=== PATIENT | male | born 1935 | race Two or more races ===

== ENCOUNTER 2020-01-23 20:34 | Emergency (ER) | payer OTHER ==
--- NOTE | 2020-01-23 20:49 | PDOC ---
History of Present Illness - General Chief Complaint: Blood Pressure Problem Stated Complaint: BLOOD PRESSURE PROBLEM - History of Present Illness Initial Comments: The pt is a 84M w/ a history of glaucoma, hypothyroidism, hypertension, CAD with stents placed 10 years ago who presents for evaluation of high blood pressure. He took his BP this AM and was SBP 170s Pt denies ORTEGA, vision changes, chest pain, trouble breathing, N/V, abdominal pain, rash, numbness/tingling Virtual appointment w/ Dr. Solorio yesterday; Lisinopril increased from 30mg to 40mg Spoke with daughter, who lives with patient (Malena), who states pt appeared anxious, did not witness shaking Meds: Lisinopril, Synthroid, ASA Daughter, Malena - [phone] 01/23/20 20:49 Past History - Medical History Allergies/Adverse Reactions: Allergies Allergy/AdvReac Type Severity Reaction Status Date / Time No Known Allergies Allergy Verified 01/23/20 21:09 Home Medications: Ambulatory Orders Lisinopril [Prinivil] 20 mg PO DAILY 11/21/19 Amlodipine Besylate [Norvasc -] 5 mg PO DAILY #30 tablet 11/23/19 Aspirin Coated [Ecotrin -] 81 mg PO DAILY tablet.ec 11/23/19 Levothyroxine [Synthroid -] 50 mcg PO DAILY@0700 30 Days tablet 11/23/19 Cardiac Disorders: Yes (STENT) HTN: Yes Thyroid Disease: Yes (HYPOTHYROIDISM) - Surgical History Cardiac Surgery: Yes (STENT) - Psycho-Social/Smoking History Smoking History: Never smoked Review of Systems - Review of Systems Able to Perform ROS?: Yes Comments:: GENERAL/CONSTITUTIONAL: No fever or chills. No weakness HEAD, EYES, EARS, NOSE AND THROAT: No change in vision. No change in hearing. No sore throat CARDIOVASCULAR: No chest pain or shortness of breath RESPIRATORY: Denies cough, hemoptysis GASTROINTESTINAL: No nausea, vomiting, diarrhea or constipation GENITOURINARY: No dysuria, frequency, or change in urination MUSCULOSKELETAL: No joint or muscle swelling or pain. No neck or back pain SKIN: No rash NEUROLOGIC: No headache, vertigo, loss of consciousness, or change in strength/sensation ENDOCRINE: No increased thirst. No abnormal weight change HEMATOLOGIC/LYMPHATIC: No anemia, easy bleeding, or history of blood clots ALLERGIC/IMMUNOLOGIC: No hives or skin allergy 01/23/20 20:49 Is the patient limited Azeri proficient: No *Physical Exam - Vital Signs 01/23/20 21:15 Initial Vital Signs Temp Pulse Resp BP Pulse Ox 98.3 F 55 L 20 138/78 100 01/23/20 21:06 01/23/20 21:06 01/23/20 21:06 01/23/20 21:06 01/23/20 21:06 - Physical Exam GENERAL: Awake, alert, and oriented to person/place/time, in no acute distress HEAD: No signs of trauma, normocephalic, atraumatic EYES: PERRLA, EOMI, sclera anicteric, conjunctiva clear ENT: Hearing grossly normal, nares patent, oropharynx clear without exudates. Moist mucosa LUNGS: No distress, speaks in full sentences, clear to auscultation bilaterally HEART: Regular rate and rhythm, normal S1 and S2, no murmurs appreciated, peripheral pulses normal and equal bilaterally ABDOMEN: Soft, nontender, normoactive bowel sounds. No guarding, no rebound EXTREMITIES: Normal inspection, Normal range of motion, no edema. No clubbing or cyanosis NEUROLOGICAL: Cranial nerves II through XII grossly intact. Normal speech, no focal sensorimotor deficits SKIN: Warm, Dry 01/23/20 20:49 ED Treatment Course - LABORATORY CBC & Chemistry Diagram: 01/23/20 21:00 01/23/20 20:46 Medical Decision Making - Medical Decision Making The pt is a 84M w/ a history of glaucoma, hypothyroidism, hypertension, CAD with stents placed 10 years ago who presents for evaluation of high blood pressure. ED Course Recent labs w/ neg Trop ECG Pt w/o chest pain at this time Pt w/o shaking or tremors at this time BP at rest 130s/70s 01/23/20 21:15 Anemia noted, no indication for transfusion at this time Leukopenia noted, similar to previous 01/23/20 21:17 ECG w/ RBBB; sinus bradycardia; HR 54; QTc 430; no axis deviation; no acute ishcemic changes 01/23/20 21:26 Discussion had with pt about how to properly take a blood pressure Pt states he is concerned because he does not know why he had higher blood pressure earlier today He states he was anxious he would and wanted to be evaluated 01/23/20 21:36 Na improved from previous Remainder of lytes unremarkable No LOC LFTs unremarkable Trop I neg Plan for D/C w/ PCP f/u Discharge instructions and return precautions given Patient in agreement and verbalized understanding Dispo: Home 01/23/20 21:50 Discharge - Discharge Information Problems reviewed: Yes Clinical Impression/Diagnosis: Hypertension Qualifiers: Hypertension type: unspecified Qualified Code(s): I10 - Essential (primary) hypertension Condition: Stable - Admission No - Follow up/Referral Referrals: Kendra Kaminski MD [Primary Care Provider] - - Patient Discharge Instructions Patient Printed Discharge Instructions: DI for High Blood Pressure, How to Monitor Your Blood Pressure at Home Additional Instructions: You were seen in the Emergency Department for evaluation of high blood pressure. You blood pressure here was normal. Your labs were unremarkable. You ECG had not changes. Review the handout provided at discharge. Follow up with your primary care provider. Return to the Emergency Department if you develop fevers, chest pain, vision changes, changes in sensation/strength, trouble breathing, worsening symptoms, or any new/concerning symptoms. - Post Discharge Activity
[2020-01-23 21:09] VITALS: TEMP 98.3; BMI 22.4
[2020-01-23 21:11] LABS: BASO % 0.5 % (0-2.0); EOS % 2.9 % (0-4.5); HEMATOCRIT 33.9 % (35.4-49); HEMOGLOBIN 11.6 GM/dL (11.7-16.9); MCH 32.4 pg (25.7-33.7); MCHC 34.3 g/dl (32.0-35.9); MEAN CELL VOLUME 94.5 fl (80-96); MEAN PLT VOLUME 6.5 fl (7.5-11.1); MONO % 10.7 % (3.8-10.2); NEUT % 61.9 % (42.8-82.8); PLATELET COUNT 217 K/MM3 (134-434); RBC 3.59 M/mm3 (4.00-5.60); RDW 14.2 % (11.9-15.9); WHITE BLOOD COUNT 2.9 K/mm3 (4.0-10.0)
[2020-01-23 21:45] LABS: ALK PHOS 55 U/L (45-117); ANION GAP 7 MMOL/L (8-16); BILIRUBIN,TOTAL 0.6 mg/dL (0.2-1); CALCIUM 8.9 mg/dL (8.5-10.1); CHLORIDE 95 mmol/L (98-107); CO2 29 mmol/L (21-32); CREATININE 0.7 mg/dL (0.55-1.3); GLUCOSE,RANDOM 104 mg/dL (74-106); POTASSIUM 3.9 mmol/L (3.5-5.1); SGOT/AST 16 U/L (15-37); SGPT/ALT 21 U/L (13-61); SODIUM 131 mmol/L (136-145); TOT PROT 7.2 g/dl (6.4-8.2)
--- NOTE | 2020-01-23 21:52 | PDOC ---
Documentation entered by Didi Edwards SCRIBE, acting as scribe for Ara Sam MD. Ara Sam MD: This documentation has been prepared by the Jerry cabello Brenda, SCRIBE, under my direction and personally reviewed by me in its entirety. I confirm that the documentation accurately reflects all work, treatment, procedures, and medical decision making performed by me. Attending Attestation - Resident Resident Name: Tad Perea - ED Attending Attestation I have performed the following: I have examined & evaluated the patient, The case was reviewed & discussed with the resident, I agree w/resident's findings & plan, Exceptions are as noted - HPI HPI: 01/23/20 21:52 this 84 yo male came to the ED because he took his blood pressure and it was elevated. He just spoke with his PCP yesterday who increasd his lisinopril to 40 mg 01/23/20 21:59 - Physicial Exam PE: 01/23/20 21:59 slender 84 yo male is worried about his blood pressure head ncat neck supple lungs cta b/l cvs [id number] abd nontender skin warm and dry neuro axox3 - Medical Decision Making 01/23/20 21:51 labs reviewed,UA negative no ekg changes 01/23/20 22:03 negative troponin/ pt DENIES chest pain,shortness of breath,vomiting,visual changes Dr Perea spoke with his daughter and she will pick the patient up 01/23/20 22:08 Discharge - Discharge Information Problems reviewed: Yes Clinical Impression/Diagnosis: Hypertension Qualifiers: Hypertension type: unspecified Qualified Code(s): I10 - Essential (primary) hypertension Condition: Stable - Follow up/Referral Referrals: Kendra Kaminski MD [Primary Care Provider] - - Patient Discharge Instructions Patient Printed Discharge Instructions: DI for High Blood Pressure, How to Monitor Your Blood Pressure at Home Additional Instructions: You were seen in the Emergency Department for evaluation of high blood pressure. You blood pressure here was normal. Your labs were unremarkable. You ECG had not changes. Review the handout provided at discharge. Follow up with your primary care provider. Return to the Emergency Department if you develop fevers, chest pain, vision changes, changes in sensation/strength, trouble breathing, worsening symptoms, or any new/concerning symptoms. - Post Discharge Activity
[2020-01-23 22:03] LABS: URINE APPEARANCE CLEAR; URINE BILIRUBIN NEGATIVE (NEGATIVE); URINE COLOR YELLOW; URINE GLUCOSE (UA) NEGATIVE (NEGATIVE); URINE KETONE NEGATIVE (NEGATIVE); URINE LEUK ESTERASE NEGATIVE (NEGATIVE); URINE NITRITE NEGATIVE (NEGATIVE); URINE PROTEIN NEGATIVE (NEGATIVE); URINE UROBILINOGEN 0.2 mg/dL (0.2-1.0)
[2020-01-24 07:12] VITALS: BP 132/86; PULSE 73
--- NOTE | 2020-01-24 12:41 | EKG ---
Test Reason : Blood Pressure : / mmHG Vent. Rate : 054 BPM Atrial Rate : 054 BPM P-R Int : 228 ms QRS Dur : 144 ms QT Int : 454 ms P-R-T Axes : 072 059 055 degrees QTc Int : 430 ms SINUS BRADYCARDIA WITH 1ST DEGREE A-V BLOCK RIGHT BUNDLE BRANCH BLOCK ABNORMAL ECG WHEN COMPARED WITH ECG OF 20-JAN-2020 19:00, NO SIGNIFICANT CHANGE WAS FOUND Confirmed by MD NANI, BETO ([id number]) on 01/24/2020 12:41:34 PM Referred By: Confirmed By:BETO CARDOZA MD
== END 2020-01-23 22:28 | disposition home or self-care (01) ==
LOC: JER 20:34
DX: I10 Essential (primary) hypertension (principal)
CPT/HCPCS: 36415; 80053; 81003; 84484; 85025; 93005; 93010; 99284-25

== ENCOUNTER 2024-04-28 18:46 | Inpatient (IN) | payer OTHER ==
[2024-04-28] MEDS: SODIUM CHLORIDE 1,000 ML IV STA (21:16)
[2024-04-28 21:21] LABS: BASO % 0.1 % (0-2.0); EOS % 0.5 % (0-4.5); HEMATOCRIT 33.9 % (35.4-49); HEMOGLOBIN 11.8 GM/dL (11.7-16.9); LYMPH % 7.2 % (8-40); MCH 31.5 pg (25.7-33.7); MCHC 34.7 g/dl (32.0-35.9); MEAN CELL VOLUME 90.9 fl (80-96); MEAN PLT VOLUME 7.9 fl (7.5-11.1); MONO % 13.1 % (3.8-10.2); NEUT % 79.1 % (42.8-82.8); PLATELET COUNT 149 10^3/uL (134-434); RBC 3.73 M/mm3 (4.00-5.60); RDW 15.1 % (11.9-15.9); WHITE BLOOD COUNT 6.4 K/mm3 (4.0-10.0)
[2024-04-28 21:55] LABS: BLOOD UREA NITROGEN 15.6 mg/dL (7-18); CALCIUM 8.6 mg/dL (8.5-10.1)
[2024-04-28 21:58] LABS: CREATININE 0.8 mg/dL (0.55-1.3)
[2024-04-28 22:00] LABS: TOT PROT 6.1 g/dl (6.4-8.2)
[2024-04-28 22:18] LABS: BILIRUBIN,TOTAL 8.3 mg/dL (0.2-1)
[2024-04-28 22:50] LABS: EPI CELLS 2 /uL (0-25.1); HYALINE CASTS 0 /uL (0-3.1); URINE APPEARANCE CLEAR; URINE BACTERIA 0 /uL (0-1359); URINE BILIRUBIN 2+ (NEGATIVE); URINE COLOR DK YELLOW; URINE GLUCOSE (UA) NEGATIVE (NEGATIVE); URINE KETONE TRACE (NEGATIVE); URINE LEUK ESTERASE NEGATIVE (NEGATIVE); URINE NITRITE NEGATIVE (NEGATIVE); URINE PROTEIN 2+ (NEGATIVE); URINE RBC 58 /uL (0-23.9); URINE WBC 28 /uL (0-25.8)
[2024-04-28] MEDS ORDERED: POTASSIUM CHLORIDE ORAL LIQUID 20 MEQ/15 ML ONE (22:58)
[2024-04-28] MEDS: MAGNESIUM SULF 50% (8.12 MEQ/2 ML-1 GM VIAL) IVPB ONE (23:27)
[2024-04-28] MEDS: POTASSIUM CHLORIDE ORAL LIQUID 20 MEQ/15 ML PO ONE (23:27)
[2024-04-28] MEDS: FOLIC ACID INJECTION - 1 MG, THIAMINE HCL 100 MG, MULTIVIT INJECTION ADULT 10 ML in SOD... IVPB ONE (23:27)
[2024-04-29] MEDS ORDERED: PIPERACILLIN/TAZOB 4.5 GM 4.5 GM/100 ML BAG IVPB ONE (09:57)
[2024-04-29] MEDS: PIPERACILLIN/TAZOB 4.5 GM 4.5 GM in DEXTROSE 5%-WATER 100 ML IVPB ONE (10:18)
[2024-04-29] MEDS: D5-1/2NS+20 MEQ KCL - 20 MEQ/1,000 ML INFUS.BAG IV SCH (13:53)
[2024-04-30 07:45] LABS: BASO % 0.1 % (0-2.0); EOS % 3.5 % (0-4.5); HEMATOCRIT 30.9 % (35.4-49); HEMOGLOBIN 10.4 GM/dL (11.7-16.9); LYMPH % 12.4 % (8-40); MCHC 33.5 g/dl (32.0-35.9); MEAN CELL VOLUME 92.7 fl (80-96); MEAN PLT VOLUME 8.3 fl (7.5-11.1); PLATELET COUNT 168 10^3/uL (134-434); RBC 3.34 M/mm3 (4.00-5.60); RDW 14.7 % (11.9-15.9); WHITE BLOOD COUNT 6.2 K/mm3 (4.0-10.0)
[2024-04-30] MEDS: LEVOTHYROXINE NA 50 MCG TABLET (FP) PO SCH (08:03)
[2024-04-30 08:09] LABS: CHLORIDE 96 mmol/L (98-107); SODIUM 132 mmol/L (136-145)
[2024-04-30 08:11] LABS: CALCIUM 7.5 mg/dL (8.5-10.1)
[2024-04-30 08:12] LABS: ALBUMIN 2.4 g/dl (3.4-5.0); BLOOD UREA NITROGEN 7.2 mg/dL (7-18); CO2 29 mmol/L (21-32); GLUCOSE,RANDOM 115 mg/dL (74-106)
[2024-04-30 08:15] LABS: CREATININE 0.6 mg/dL (0.55-1.3); SGOT/AST 25 U/L (15-37); SGPT/ALT 60 U/L (13-61)
[2024-04-30 08:16] LABS: TOT PROT 5.4 g/dl (6.4-8.2)
[2024-04-30 08:18] LABS: ALK PHOS 126 U/L (45-117)
[2024-04-30 08:54] LABS: ANION GAP 7 mmol/L (4-13); POTASSIUM 2.8 mmol/L (3.5-5.1)
[2024-04-30 09:00] LABS: BILIRUBIN,TOTAL 3.2 mg/dL (0.2-1)
[2024-04-30] MEDS ORDERED: MAGNESIUM CITRATE 300 ML BOTTLE ONE (09:45)
[2024-04-30] MEDS ORDERED: amLODIPine BESYLATE 5 MG TABLET (FP) PO SCH (10:00)
[2024-04-30] MEDS: LISINOPRIL 20 MG TABLET PO SCH (10:01)
[2024-04-30] MEDS: MAGNESIUM CITRATE 300 ML BOTTLE PO ONE (10:01)
[2024-04-30] MEDS: BISACODYL 5 MG TABLET.DR (FP) PO ONE (10:47)
[2024-04-30] MEDS: KCL 10 MEQ IVPB 10 MEQ/100 ML INFUS.BAG IVPB SCH ×2 (10:47→22:25)
[2024-04-30] MEDS ORDERED: KCL 10 MEQ IVPB 10 MEQ/100 ML INFUS.BAG IVPB ONE (22:13)
[2024-04-30] MEDS ORDERED: KCL 10 MEQ IVPB 20 MEQ/200 ML INFUS.BAG IVPB ONE (23:43)
[2024-05-01 09:40] LABS: HEMATOCRIT 31.1 % (35.4-49); HEMOGLOBIN 10.6 GM/dL (11.7-16.9); MCH 31.1 pg (25.7-33.7); MEAN CELL VOLUME 91.4 fl (80-96); PLATELET COUNT 208 10^3/uL (134-434); WHITE BLOOD COUNT 5.1 K/mm3 (4.0-10.0)
[2024-05-01 09:44] LABS: INR 1.25 (0.83-1.09)
[2024-05-01 09:56] LABS: POTASSIUM 3.5 mmol/L (3.5-5.1)
[2024-05-01 10:00] LABS: ALBUMIN 2.4 g/dl (3.4-5.0); BLOOD UREA NITROGEN 8.1 mg/dL (7-18); CALCIUM 7.8 mg/dL (8.5-10.1)
[2024-05-01 10:04] LABS: CREATININE 0.6 mg/dL (0.55-1.3)
[2024-05-01 10:06] LABS: BILIRUBIN,TOTAL 2.2 mg/dL (0.2-1); TOT PROT 5.4 g/dl (6.4-8.2)
[2024-05-01 10:36] LABS: ANISOCYTOSIS 0; MACROCYTOSIS 0
[2024-05-01] MEDS: CEFTRIAXONE 1 GM in DEXTROSE 5%-WATER - 50 ML IVPB SCH (12:33)
[2024-05-01] MEDS: LACTATED RINGERS SOLUTION 1,000 ML/1,000 ML INFUS.BAG IV STA (15:15)
[2024-05-02] MEDS: TIMOLOL 0.5% OPHTHALMIC SOL 5 ML BOTTLE OU SCH (01:10)
[2024-05-02 10:32] LABS: HEMATOCRIT 35.1 % (35.4-49); HEMOGLOBIN 11.9 GM/dL (11.7-16.9); MCH 30.9 pg (25.7-33.7); MCHC 33.8 g/dl (32.0-35.9); MEAN CELL VOLUME 91.5 fl (80-96); MEAN PLT VOLUME 8.2 fl (7.5-11.1); PLATELET COUNT 286 10^3/uL (134-434); RBC 3.84 M/mm3 (4.00-5.60); RDW 15.3 % (11.9-15.9); WHITE BLOOD COUNT 5.8 K/mm3 (4.0-10.0)
[2024-05-02 10:58] LABS: POTASSIUM 3.7 mmol/L (3.5-5.1)
[2024-05-02 11:07] LABS: CALCIUM 8.4 mg/dL (8.5-10.1)
[2024-05-02 11:08] LABS: ALBUMIN 2.8 g/dl (3.4-5.0); BILIRUBIN,TOTAL 2.1 mg/dL (0.2-1); BLOOD UREA NITROGEN 14.2 mg/dL (7-18); TOT PROT 6.1 g/dl (6.4-8.2)
[2024-05-02 11:10] LABS: CREATININE 0.7 mg/dL (0.55-1.3)
[2024-05-02 11:21] LABS: ANISOCYTOSIS 0; MACROCYTOSIS 0
[2024-05-02 15:46] VITALS: BMI 23.8
[2024-05-02] MEDS: LATANOPROST 0.005% OPHTH SOLN 2.5ML BOTTLE OU SCH (22:14)
[2024-05-03 09:54] LABS: INR 1.31 (0.83-1.09); PROTHROMBIN TIME (PATIENT) 14.7 SEC (9.7-13.0)
[2024-05-03 09:56] LABS: HEMATOCRIT 33.3 % (35.4-49); HEMOGLOBIN 11.3 GM/dL (11.7-16.9); MEAN CELL VOLUME 91.2 fl (80-96); MEAN PLT VOLUME 7.8 fl (7.5-11.1); PLATELET COUNT 280 10^3/uL (134-434); RBC 3.65 M/mm3 (4.00-5.60); WHITE BLOOD COUNT 5.5 K/mm3 (4.0-10.0)
[2024-05-03 10:10] LABS: POTASSIUM 3.4 mmol/L (3.5-5.1)
[2024-05-03 10:15] LABS: ALBUMIN 2.7 g/dl (3.4-5.0); BLOOD UREA NITROGEN 12.5 mg/dL (7-18); CALCIUM 8.2 mg/dL (8.5-10.1)
[2024-05-03 10:18] LABS: CREATININE 0.7 mg/dL (0.55-1.3)
[2024-05-03 10:21] LABS: BILIRUBIN,TOTAL 1.8 mg/dL (0.2-1); TOT PROT 5.8 g/dl (6.4-8.2)
[2024-05-03 11:17] LABS: ANISOCYTOSIS 0; MACROCYTOSIS 0
[2024-05-03] MEDS: ACETAMINOPHEN 500 MG TABLET (FP) PO PRN (16:02)
[2024-05-03] MEDS: POTASSIUM CHLORIDE ORAL LIQUID 20 MEQ/15 ML PO ONE (16:03)
[2024-05-03] MEDS ORDERED: LISINOPRIL 20 MG TABLET PO SCH (22:00)
[2024-05-04] MEDS ORDERED: PROPOFOL 20 ML ONE (10:21)
[2024-05-04 10:22] LABS: HEMATOCRIT 33.6 % (35.4-49); HEMOGLOBIN 11.5 GM/dL (11.7-16.9); INR 1.21 (0.83-1.09); MCH 31.2 pg (25.7-33.7); MCHC 34.2 g/dl (32.0-35.9); MEAN CELL VOLUME 91.1 fl (80-96); MEAN PLT VOLUME 7.8 fl (7.5-11.1); PLATELET COUNT 284 10^3/uL (134-434); PROTHROMBIN TIME (PATIENT) 13.8 SEC (9.7-13.0); RBC 3.69 M/mm3 (4.00-5.60); RDW 15.8 % (11.9-15.9); WHITE BLOOD COUNT 6.7 K/mm3 (4.0-10.0)
[2024-05-04] MEDS ORDERED: ROCURONIUM BROMIDE 50 MG/5 ML SYRINGE ONE (10:23)
[2024-05-04] MEDS ORDERED: SUGAMMADEX SODIUM 200 MG/2 ML VIAL ONE (10:24)
[2024-05-04 11:12] LABS: ANISOCYTOSIS 0; MACROCYTOSIS 0
[2024-05-04] MEDS: BUPIVACAINE HCL/PF 0.25% (2.5MG/ML) 10 ML VIAL IJ ONE (11:17)
[2024-05-04] MEDS ORDERED: LACTATED RINGERS SOLUTION 1,000 ML IV SCH (12:00)
[2024-05-04] MEDS ORDERED: ONDANSETRON 4 MG/2 ML VIAL IVPUSH PRN ×2 (12:00→13:17)
[2024-05-04 12:14] LABS: POTASSIUM 3.8 mmol/L (3.5-5.1)
[2024-05-04] MEDS ORDERED: ACETAMINOPHEN INJECTION 100 ML ONE (12:19)
[2024-05-04 12:23] LABS: ALBUMIN 2.9 g/dl (3.4-5.0); BLOOD UREA NITROGEN 11.5 mg/dL (7-18); CALCIUM 8.4 mg/dL (8.5-10.1)
[2024-05-04 12:26] LABS: CREATININE 0.6 mg/dL (0.55-1.3)
[2024-05-04 12:28] LABS: BILIRUBIN,TOTAL 1.4 mg/dL (0.2-1)
[2024-05-04] MEDS: ACETAMINOPHEN 1000 MG/100 ML BAG IVPB ONE ×2 (12:30→16:56)
[2024-05-04] MEDS: LACTATED RINGERS SOLUTION 1,000 ML IV SCH (16:00)
[2024-05-04 21:33] LABS: PHOSPHOROUS 2.9 mg/dL (2.5-4.9)
[2024-05-04] MEDS: TIMOLOL 0.5% OPHTHALMIC SOL 5 ML BOTTLE OU SCH (22:15)
[2024-05-04] MEDS: LATANOPROST 0.005% OPHTH SOLN 2.5ML BOTTLE OU SCH (22:16)
[2024-05-04] MEDS: SODIUM CHLORIDE 1,000 ML IV SCH (22:16)
[2024-05-04] MEDS: LISINOPRIL 10 MG TABLET PO ONE (22:17)
[2024-05-04] MEDS: ACETAMINOPHEN 500 MG TABLET (FP) PO PRN (22:17)
[2024-05-05] MEDS: LEVOTHYROXINE NA 50 MCG TABLET (FP) PO SCH (06:03)
[2024-05-05 06:56] VITALS: BP 157/78; PULSE 51; RESP 17; TEMP 97.7
[2024-05-05] MEDS: LISINOPRIL 20 MG TABLET PO SCH (09:11)
[2024-05-05 09:45] LABS: BASO % 0.1 % (0-2.0); EOS % 1.1 % (0-4.5); HEMATOCRIT 32.7 % (35.4-49); HEMOGLOBIN 10.9 GM/dL (11.7-16.9); LYMPH % 10.3 % (8-40); MCH 30.7 pg (25.7-33.7); MCHC 33.3 g/dl (32.0-35.9); MEAN PLT VOLUME 8.2 fl (7.5-11.1); MONO % 8.1 % (3.8-10.2); NEUT % 80.4 % (42.8-82.8); PLATELET COUNT 290 10^3/uL (134-434); RBC 3.56 M/mm3 (4.00-5.60); RDW 15.5 % (11.9-15.9)
[2024-05-05 10:09] LABS: POTASSIUM 3.8 mmol/L (3.5-5.1)
[2024-05-05 10:12] LABS: CALCIUM 7.8 mg/dL (8.5-10.1)
[2024-05-05 10:13] LABS: ALBUMIN 2.6 g/dl (3.4-5.0); BLOOD UREA NITROGEN 12.2 mg/dL (7-18)
[2024-05-05 10:15] LABS: CREATININE 0.6 mg/dL (0.55-1.3)
[2024-05-05 10:17] LABS: BILIRUBIN,TOTAL 1.3 mg/dL (0.2-1); TOT PROT 5.5 g/dl (6.4-8.2)
[2024-05-05] MEDS: SODIUM CHLORIDE 1,000 ML IV SCH (11:23)
[2024-05-05] MEDS: ACETAMINOPHEN 1000 MG/100 ML BAG IVPB PRN (12:30)
== END 2024-05-05 16:37 | disposition home or self-care (01) | DRG 419 ==
LOC: JER 18:46 → JERBED 04-29 02:52 → OBSVTOIN 04-29 12:32 → J8W 05-01 01:57 → J4S 05-04 16:56
PROVIDERS: ADMIT Internal Medicine; ATTEND Nurse Practitioner Family
PROC: 0FT44ZZ Resection of Gallbladder, Percutaneous Endoscopic Approach (ICD-10-PCS; principal; 2024-05-04 08:00)
DX: K80.10 Calculus of gallbladder with chronic cholecystitis without obstruction (principal); I10 Essential (primary) hypertension; E03.9 Hypothyroidism, unspecified; E78.5 Hyperlipidemia, unspecified; H40.9 Unspecified glaucoma; I25.10 Atherosclerotic heart disease of native coronary artery without angina pectoris; E87.6 Hypokalemia; R74.01 Elevation of levels of liver transaminase levels; R00.1 Bradycardia, unspecified; K59.00 Constipation, unspecified; Z95.5 Presence of coronary angioplasty implant and graft; Y83.8 Other surgical procedures as the cause of abnormal reaction of the patient, or of later complication, without mention of misadventure at the time of the procedure
CPT/HCPCS: 0241U-QW; 36415; 70450-TC; 71046-TC-FY; 74177-TC; 76000-TC-FY; 76705-TC; 80053; 80061; 81003; 83036; 83690; 83735; 83880; 84100; 84132; 84443; 84484; 85025; 85610; 86850; 86900; 86901; 87086; 88304-TC; 93005; 93010; 93306-TC; 94760; 97116-GP; 97161-GP; 99285-25; C1874; G0378; J0131; Q9967

== ENCOUNTER 2024-07-12 11:51 | Emergency (ER) | payer OTHER ==
[2024-07-12 12:02] VITALS: BP 181/99; PULSE 66; RESP 18; TEMP 97.6; BMI 21.6
== END 2024-07-12 14:54 | disposition left against medical advice (07) ==
LOC: JER 11:51
DX: H53.8 Other visual disturbances (principal)
CPT/HCPCS: 99283-25